=== PATIENT | female | born 1980 | race American Indian/Alaskan Native ===

== ENCOUNTER 2017-09-01 12:30 | Observation (INO) | payer BC ==
--- NOTE | 2017-09-01 12:55 | Anesthesia Day of Surgery ---
Anesthesia Day of Surgery - Day of Surgery Patient Examined: Yes Patient H&P Reviewed: Yes Patient is NPO: Yes
--- NOTE | 2017-09-01 12:55 | Anesthesia Consultation ---
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
[2017-09-01] MEDS ORDERED: NACL 0.9% 1000 ML 1,000 ML IV SCH (13:00)
[2017-09-01] MEDS ORDERED: ANCEF/STERILE WATER 2 GM/20 ML IV NR (13:00)
[2017-09-01] MEDS ORDERED: PEPCID IV NR (13:00)
[2017-09-01] MEDS ORDERED: DIPRIVAN 10 MG/ML IV ONE (13:05)
[2017-09-01] MEDS ORDERED: SUBLIMAZE ONE (13:06)
[2017-09-01 13:22] LABS: Basophils % (Auto) 0.6 % (0.0-1.8); Eosinophils # (Auto) 0.2 K/mm3 (0.0-0.4); Eosinophils % (Auto) 3.6 % (0.0-4.3); Lymphocytes # (Auto) 2.2 K/mm3 (1.2-5.4); Lymphocytes % (Auto) 40.7 % (13.4-35.0); Mean Corpuscular HGB Conc 36 % (30-34); Mean Corpuscular Hemoglobin 29 pg (28-32); Mean Corpuscular Volume 79 fl (79-97); Monocytes # (Auto) 0.6 K/mm3 (0.0-0.8); Monocytes % (Auto) 11.6 % (0.0-7.3); Platelet Count 219 K/mm3 (140-440); Red Blood Count 5.19 M/mm3 (3.65-5.03); Red Cell Distribution Width 14.7 % (13.2-15.2)
[2017-09-01 13:34] LABS: Hemoglobin 14.8 gm/dl (10.1-14.3)
[2017-09-01 13:38] LABS: Alanine Aminotransferase 11 units/L (7-56); Albumin 4.2 g/dL (3.9-5); BUN/Creatinine Ratio 14; Blood Urea Nitrogen 10 mg/dL (7-17); Hemolysis Index 16
[2017-09-01] MEDS ORDERED: MARCAINE 0.5% 30 ML INFILTRATI ONE (14:20)
[2017-09-01] MEDS ORDERED: XYLOCAINE MPF 2% ONE (14:28)
[2017-09-01] MEDS ORDERED: QUELICIN ONE (14:29)
[2017-09-01] MEDS ORDERED: ZEMURON IV ONE (14:29)
[2017-09-01] MEDS ORDERED: DECADRON ONE (14:29)
[2017-09-01] MEDS ORDERED: ZOFRAN ONE (14:29)
[2017-09-01] MEDS ORDERED: NACL 0.9% IR ONE ×2 (14:47→15:27)
[2017-09-01] MEDS ORDERED: MARCAINE 0.5% INFILTRATI ONE (15:11)
[2017-09-01] MEDS ORDERED: NEOSTIGMINE ONE (15:53)
[2017-09-01] MEDS ORDERED: ROBINUL ONE ×2 (15:53→16:05)
[2017-09-01] MEDS ORDERED: DILAUDID ONE (16:03)
[2017-09-01] MEDS ORDERED: NACL 0.9% 1000 ML 1,000 ML ONE (16:06)
[2017-09-01] MEDS ORDERED: AMBIEN PO PRN (16:46)
[2017-09-01] MEDS: SUBLIMAZE IV PRN ×2 (16:53→17:09)
[2017-09-01] MEDS: DILAUDID IV PRN ×3 (17:20→22:03)
[2017-09-01] MEDS: D5W/0.45% NACL/KCL 20 MEQ 20 MEQ/1,000 ML BAG IV SCH ×2 (18:01→22:03)
--- NOTE | 2017-09-01 22:36 | Operative Report ---
PREOPERATIVE DIAGNOSES: Epigastric hernia status post surgery many years back. POSTOPERATIVE DIAGNOSES: Epigastric hernia status post surgery many years back with extensive adhesions in the abdomen from the omentum and the abdominal wall. The defect is barely about 1 cm. Incarcerated in the defect, a piece of the omentum. I was able to do that with the scope dissecting all the adhesions and I had to open the area of the defect to retrieve the portion of the omentum that is about 5 x 2 x 2 cm. This examination showed nothing specific except for extensive adhesions between the omentum and the abdominal wall. This all was done with the use of the camera. ESTIMATED BLOOD LOSS: Minimal. DESCRIPTION OF PROCEDURE: With the patient in supine position, I cleaned and draped in usual fashion. I made a small incision in the mid right upper quadrant with a Veress needle, I was able to do CO2 pressure of 15 for which #5 trocar was inserted, slowly over with the Veress needle, I was able to insufflate first and then the trocar was inserted. Camera #5, was then inserted. I could see lots of adhesions, had to put 2 more trocars, #5 each one in the right lower quadrant and 1 in the mid lateral abdomen at the right side and then I was able to see the area slowly dissecting all the adhesions using caudal cautery with the EndoShear. The adhesions were very extensive. At one point, I wanted to open, but then I was able to continue and I did everything is fine. The adhesions were mainly contained to the omentum and the abdominal wall. DESCRIPTION OF PROCEDURE: With the patient in supine position, he is cleaned in the usual fashion. I made a small incision in the right mid upper abdomen with the Veress needle, I was able to do CO2 pressure of 15 for which #5 trocar was inserted. With use of the camera, I was able to evaluate the entire abdomen. Lots of scar tissue and adhesions were seen. So, I had to put another trocar #5 in the mid right lower quadrant and with use of the camera as well, I was able to see also the area of concern. Similarly, a tongue of the omentum stuck into the abdominal wall at midline. So dissecting it slowly and removing it using the cautery. We were well satisfied, then all the adhesions were lysed. We had a good view of the abdomen and some bleeding was handled with use of cold cautery and then the area was then irrigated with sterile normal saline. I was satisfied there is an area of the omentum by the small intestine that was a little bit of denuded. This was handled with the use of Surgicel. There is no evidence of any perforation or any leak. I was satisfied, then all the trocars were removed one by one, closing the subcutaneous tissue with the use of 4-0 Vicryl and the fascia with a small defect was in the mid abdomen, which is barely about 1 cm was closed with use of #1 Vicryl [id number]. I was satisfied, then the same for the skin using 4-0 Vicryl. Bandages were applied. The patient was then transferred to the recovery room in good condition. JOB# [id number] MIRIAM/DANITZA
[2017-09-02] MEDS: DILAUDID IV PRN ×2 (08:18→12:40)
[2017-09-02] MEDS ORDERED: FLEET PR ONE (14:10)
--- NOTE | 2017-09-02 14:13 | Progress Note ---
Subjective Narrative: doing OK abd soft , no BM , noflatus , ambulaory in the [facility] home tda ?bto in 10 days Objective Vital Signs - 12hr 09/02/17 09/02/17 09/02/17 04:02 07:09 07:10 Temperature 98.7 F 98.8 F Pulse Rate 67 67 96 H Respiratory 18 18 Rate Blood Pressure 107/60 Blood Pressure 123/80 [Left] O2 Sat by Pulse 96 98 97 Oximetry 09/02/17 09/02/17 09/02/17 08:18 08:48 12:40 Temperature Pulse Rate Respiratory 20 18 18 Rate Blood Pressure Blood Pressure [Left] O2 Sat by Pulse Oximetry 09/02/17 09/02/17 09/02/17 13:09 13:25 13:26 Temperature 98.9 F Pulse Rate 74 72 Respiratory 18 18 Rate Blood Pressure 106/65 Blood Pressure [Left] O2 Sat by Pulse 98 99 Oximetry - Labs 09/01/17 13:10 09/01/17 13:10
[2017-09-02] MEDS ORDERED: MILK OF MAGNESIA PO ONE (15:51)
[2017-09-02 19:24] VITALS: BP 122/67
== END 2017-09-02 19:36 | disposition home or self-care (01) ==
LOC: OR 12:30 → 3B-SURG 16:39
PROVIDERS: ADMIT Surgery; ATTEND Surgery
DX: K66.0 Peritoneal adhesions (postprocedural) (postinfection) (principal); K43.9 Ventral hernia without obstruction or gangrene
CPT/HCPCS: 36415; 44180; 80053; 85025; 88305; 96374; 96375; 96376; A4217; C1765; G0378; J0330; J0690; J1100; J1170; J2405; J2704; J2710; J3010; J7030

== ENCOUNTER 2017-10-08 09:32 | Outpatient (CLI) | payer BC ==
[2017-10-08] MEDS ORDERED: SILVER NITRATE TP ONE ×2 (10:40→17:28)
[2017-10-08] MEDS ORDERED: XYLOCAINE TOPICAL 4% TP ONE (12:00)
== END 2017-10-08 09:33 | disposition home or self-care (01) ==
LOC: WOUND 09:32
PROVIDERS: ATTEND Surgery
DX: T81.89XA Other complications of procedures, not elsewhere classified, initial encounter (principal); Z90.710 Acquired absence of both cervix and uterus; Z87.891 Personal history of nicotine dependence; Z72.89 Other problems related to lifestyle; X58.XXXA Exposure to other specified factors, initial encounter; Y93.89 Activity, other specified; Y92.89 Other specified places as the place of occurrence of the external cause; Y99.8 Other external cause status
CPT/HCPCS: 17250; G0463

== ENCOUNTER 2017-10-15 08:56 | Outpatient (CLI) | payer BC ==
[2017-10-15] MEDS ORDERED: XYLOCAINE TOPICAL 4% TP ONE (09:11)
[2017-10-15] MEDS ORDERED: SILVER NITRATE TP ONE ×2 (09:34→15:18)
== END 2017-10-15 08:57 | disposition home or self-care (01) ==
LOC: WOUND 08:56
PROVIDERS: ATTEND Surgery
DX: T81.89XD Other complications of procedures, not elsewhere classified, subsequent encounter (principal); Z90.710 Acquired absence of both cervix and uterus; Z87.891 Personal history of nicotine dependence; Y83.8 Other surgical procedures as the cause of abnormal reaction of the patient, or of later complication, without mention of misadventure at the time of the procedure
CPT/HCPCS: 17250; G0463

== ENCOUNTER 2017-10-22 08:52 | Outpatient (CLI) | payer BC ==
[2017-10-22] MEDS ORDERED: XYLOCAINE TOPICAL 4% TP ONE (09:17)
== END 2017-10-22 08:53 | disposition home or self-care (01) ==
LOC: WOUND 08:52
PROVIDERS: ATTEND Surgery
DX: T81.89XD Other complications of procedures, not elsewhere classified, subsequent encounter (principal); Z90.710 Acquired absence of both cervix and uterus; Z87.891 Personal history of nicotine dependence; Y83.8 Other surgical procedures as the cause of abnormal reaction of the patient, or of later complication, without mention of misadventure at the time of the procedure
CPT/HCPCS: 99213; G0463

== ENCOUNTER 2017-10-29 08:52 | Outpatient (CLI) | payer BC | END 2017-10-29 08:53 | disposition home or self-care (01) | LOC: WOUND 08:52 | PROVIDERS: ATTEND Surgery | DX: T81.89XD Other complications of procedures, not elsewhere classified, subsequent encounter (principal); Z90.710 Acquired absence of both cervix and uterus; Z87.891 Personal history of nicotine dependence; Y83.8 Other surgical procedures as the cause of abnormal reaction of the patient, or of later complication, without mention of misadventure at the time of the procedure | CPT/HCPCS: 99213; G0463 ==

== ENCOUNTER 2018-03-13 07:25 | Day surgery (SDC) | payer BC ==
[2018-03-13] MEDS ORDERED: DIPRIVAN 10 MG/ML IV ONE ×2 (08:09)
[2018-03-13] MEDS ORDERED: NACL 0.9% 1000 ML 1,000 ML IV SCH (09:00)
[2018-03-13] MEDS ORDERED: WATER FOR IRRIG STERILE IR ONE (10:20)
[2018-03-13] MEDS ORDERED: WATER FOR IRRIG STERILE ONE (10:20)
[2018-03-13] MEDS ORDERED: XYLOCAINE TOPICAL 2% 5ML ONE (10:21)
[2018-03-13] MEDS ORDERED: XYLOCAINE TOPICAL 2% 30ML TP ONE (10:25)
[2018-03-13] MEDS ORDERED: XYLOCAINE MPF 2% ONE (10:30)
--- NOTE | 2018-03-13 10:46 | Procedure Note ---
Date of procedure: 03/13/18 Pre-op diagnosis: Hematochezia Post-op diagnosis: other (Moderate Internal Hemmorrhoids (s/p Banding x 4)/ Moderate,External Hemorrhoids/ Normal Colon Mucosa) Procedure: Colonoscopy and Flexible Sigmoidoscopy with Banding x 4 Anesthesia: MAC Surgeon: NATALIIA MAURICE Estimated blood loss: none Pathology: none Condition: stable Disposition: same day (Avoid aspirin and aspirin related products for 4 days. follow up in 1 to 2 weeks ([phone]).)
--- NOTE | 2018-03-13 10:50 | History and Physical Report ---
HISTORY OF PRESENT ILLNESS: This is a 37-year-old -[place] female who is in otherwise good health, who does have a strong family history of cancer. The patient has a history of breast cancer on the mother's side. Lately, she has been having some rectal pain with some lower GI bleeding and has been sent here for evaluation. She had tried some Preparation-H without any significant relief and has been advised to have a colonoscopy done for further assessment to see whether she has any enlarged hemorrhoids that might require banding and to also check and assess for any associated colitis. PAST SURGICAL HISTORY: The patient gives a history of partial hysterectomy, umbilical surgery. 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 FAMILY HISTORY: Breast cancer, diabetes mellitus, arthritis and neuropathy. SOCIAL HISTORY: Denies history of smoking. Does admit to drinking alcohol on occasion. No cardiac issues. No flu shots. ALLERGIES: No known allergies. PHYSICAL EXAMINATION: GENERAL: She is afebrile. VITAL SIGNS: Blood pressure is 124/68, pulse of 78, height is 5 feet 4-1/2 inches, weight is 188 pounds. HEENT: Shows no JVD. LUNGS: Clear to auscultation. CARDIOVASCULAR: Normal. ABDOMEN: Soft. Bowel sounds present. NEUROLOGIC: She is otherwise alert and oriented. ASSESSMENT AND PLAN: Lower gastrointestinal bleeding, rectal pain, possible colitis, possible internal hemorrhoids that might require banding. PLAN: To do a colonoscopy, possible flex sig with banding if needed to be done at [facility] on 03/13/2018. JOB# [id number] SHAKILA/DANITZA BRAGG
[2018-03-13] MEDS ORDERED: NORCO 5/325 PO PRN (10:55)
--- NOTE | 2018-03-13 10:59 | Operative Report ---
PROCEDURE: Colonoscopy. INDICATIONS: This is a 37-year-old -[place] female in otherwise good health who does have a family of breast cancer, who recently noted some lower GI bleeding. Colonoscopy was done to make sure there was not any significant lower GI pathology. DESCRIPTION OF PROCEDURE: Initial rectal exam showed presence of external hemorrhoids of which a photodocumentation was obtained, which was moderate in size. The instrument was then passed through rectum onto the cecum, which was identified with ileocecal valve and appendiceal orifice. Visualization was fair. Cecum, ascending colon. transverse colon, descending colon, and sigmoid showed normal mucosa, and the rectum showed moderate internal hemorrhoids on the retroverted view, which may have been the cause of the patient's hematochezia. ASSESSMENT: Hematochezia secondary to moderate internal hemorrhoids, moderate external hemorrhoid also noted. Otherwise, colon mucosa appeared to be normal. There was no bleeding associated with the procedure. No biopsies done. No complications associated with the procedure. The plan is to do a flex sig with banding for further treatment of the internal hemorrhoid, which is a possible cause of the patient's hematochezia. Nurse, Araceli Quesada was in the room throughout the entirety of the procedure. JOB# [id number] SHAKILA/DANITZA
--- NOTE | 2018-03-13 11:01 | Operative Report ---
INDICATIONS: This is a 37-year-old -[place] female in otherwise good health, who has been having hematochezia. A flex sig with banding was done for treatment of that condition. Procedure was done after getting informed consent, with MAC anesthesia. Instrument was passed and retroverted and four of the largest hemorrhoids were then suctioned into the suction channel and a band was applied to each of these hemorrhoids, one of the band did not deploy properly. A total of 5 bands were deployed, but 4 were deployed for banding the hemorrhoids. There was no bleeding associated with the procedure. No complications associated with the procedure. The instrument was withdrawn and lidocaine gel was then applied to the banded hemorrhoids. There was no bleeding associated with it and no complications associated with the procedure. The patient will be given some analgesics, to be taken as needed and lidocaine gel also to be applied as needed. ASSESSMENT: Hematochezia secondary to moderate internal hemorrhoids, status post banding x 4. PLAN: Plan is to treat the patient with analgesics and hemorrhoidal banding and urge the patient to Sitz baths. Avoid aspirin and aspirin-related products for the next few days and follow up in the office in 1-2 weeks' time. Nurse, Araceli Quesada was in the room throughout the entirety of the procedure. JOB# [id number] SHAKILA/DANITZA
[2018-03-13] MEDS ORDERED: NORCO 5/325 ONE (11:07)
[2018-03-13 11:17] VITALS: BP 128/86
[2018-03-13] MEDS ORDERED: NACL 0.9% 1000 ML 1,000 ML ONE (12:03)
== END 2018-03-13 11:47 | disposition home or self-care (01) ==
LOC: GIO 07:25
DX: K64.8 Other hemorrhoids (principal); K64.4 Residual hemorrhoidal skin tags; D57.3 Sickle-cell trait; F17.290 Nicotine dependence, other tobacco product, uncomplicated; Z79.899 Other long term (current) drug therapy; Z72.89 Other problems related to lifestyle; Z90.711 Acquired absence of uterus with remaining cervical stump; Z98.890 Other specified postprocedural states; Z80.0 Family history of malignant neoplasm of digestive organs; Z80.3 Family history of malignant neoplasm of breast
CPT/HCPCS: 45378; 46221; J2704; J7030